=== PATIENT | female | born 1990 | race Caucasian/White ===

== ENCOUNTER 2021-11-19 15:47 | Emergency (ER) | payer SELFPAY ==
[2021-11-19 18:43] VITALS: BP 120/99; PULSE 69; RESP 18; TEMP 36.8; O2SAT 98; BMI 36.0
== END 2021-11-19 19:50 | disposition left against medical advice (07) ==
PROVIDERS: Emergency Provider Emergency Medicine
DX: M54.50 Low back pain, unspecified (principal)
CPT/HCPCS: 99281